=== PATIENT | male | born 1945 | race Caucasian/White ===

== ENCOUNTER → 2017-11-22 | Outpatient (CLI) | payer MEDICARE ==
[~2017-11-22] MED LIST: AMLO10TA2 PO; CEPH-460 PO; HYDR-4107 PO; HYDR25TA5 PO; LOSA100T PO; MUPI2OIN TOPICAL; OMEP20TA93 PO; VENL150C39 PO; VENL75TA PO
[2017-11-22 12:24] LABS: AUTOMATED NEUTROPHIL # 7.5 TH/MM3 (1.8-7.7); BASOPHIL % 0.3 % (0.0-2.0); EOSINOPHIL # 0.1 TH/MM3 (0-0.4); EOSINOPHIL % 0.6 % (0.0-4.0); HEMATOCRIT 40.8 % (39.0-51.0); HEMOGLOBIN 14.4 GM/DL (13.0-17.0); LYMPH % 17.4 % (9.0-44.0); LYMPHOCYTE # 1.7 TH/MM3 (1.0-4.8); MEAN CELL VOLUME 97.6 FL (80.0-100.0); MEAN CORPUSCULAR HEMOGLOBIN 34.5 PG (27.0-34.0); MEAN CORPUSCULAR HGB CONC 35.4 % (32.0-36.0); MEAN PLATELET VOLUME 7.9 FL (7.0-11.0); MONO % 7.1 % (0.0-8.0); MONOCYTE # 0.7 TH/MM3 (0-0.9); NEUT % 74.6 % (16.0-70.0); PLATELET COUNT 326 TH/MM3 (150-450); RED BLOOD COUNT 4.18 MIL/MM3 (4.50-5.90); RED CELL DISTRIBUTION WIDTH 13.3 % (11.6-17.2)
[2017-11-22 12:28] LABS: PROTHROMBIN TIME - PATIENT 9.8 SEC (9.8-11.6)
[2017-11-22 12:35] LABS: BILIRUBIN, URINE NEG (NEG); BLOOD, URINE NEG (NEG); GLUCOSE,URINE NEG (NEG); HYALINE CAST, URINE 1 /lpf (RARE); KETONE, URINE NEG (NEG); NITRITE,URINE NEG (NEG); PH, URINE 7.5 (5.0-8.5); URINE COLOR YELLOW (YELLW/STRAW); URINE LEUKOCYTE ESTERASE NEG (NEG)
[2017-11-22 12:56] LABS: ALBUMIN 4.2 GM/DL (3.4-5.0); AST (GOT) 16 U/L (15-37); BICARBONATE 30.8 MEQ/L (21.0-32.0); BLOOD UREA NITROGEN 6 MG/DL (7-18); CALCIUM 9.5 MG/DL (8.5-10.1); CHLORIDE 100 MEQ/L (98-107); CREATININE 0.69 MG/DL (0.60-1.30); GLOMERULAR FILTRATION RATE 113 ML/MIN (>89); GLUCOSE,FASTING 106 MG/DL (74-99); SODIUM (NA) 137 MEQ/L (136-145)
[2017-11-22 12:57] LABS: ALT (GPT) 22 U/L (12-78)
[2017-11-22 13:00] LABS: ALKALINE PHOSPHATASE 126 U/L (45-117); TOTAL BILIRUBIN ADULT 1.1 MG/DL (0.2-1.0); TOTAL PROTEIN 8.1 GM/DL (6.4-8.2)
--- NOTE | 2017-11-22 13:13 | RADRPT ---
EXAM DATE/TIME: 11/22/2017 13:04 [place] COMPARISON: No previous studies available for comparison. INDICATIONS : Pre op. Evaluate for pneumonia, pneumothorax, or communicable diseases. MEDICAL HISTORY : None. SURGICAL HISTORY : Fusion, cervical. ENCOUNTER: Initial ACUITY: 1 day PAIN SCORE: 0/10 LOCATION: Bilateral chest FINDINGS: PA and lateral views of the chest demonstrate the lungs to be symmetrically aerated without evidence of mass, infiltrate or effusion. There is some focal linear atelectasis versus scarring in the left lung base. The cardiomediastinal contours are unremarkable. There is prominent scoliosis of the thora cic spine with curvature to the right. The bony structures are grossly intact. CONCLUSION: 1. Linear focal atelectasis versus scarring in the left lung base. Otherwise, the lungs are grossly c lear. 2. Prominent scoliosis of the thoracic spine with curvature to the right. Catracho Mcgovern MD on November 22, 2017 at 13:11 Board Certified Radiologist. This report was verified electronically.
--- NOTE | 2017-11-23 13:45 | EKG ---
Date Performed: 11/22/2017 Time Performed: 12:44:30 PTAGE: 72 years EKG: Sinus rhythm LEFT ATRIAL ABNORMALITY POOR R-WAVE PROGRESSION WHICH MAY BE DUE TO LEAD PLACEMENT, CANNOT EXCLUDE A NTEROSEPTAL INFARCT LOSS OF R-WAVE IS NOTED IN LEAD V3 COMAPRED TO THE PRIOR TRACING, MOST LIKELY DUE TO LEAD PLACEMENT. BORDERLINE ECG PREVIOUS TRACING DOCTOR: Javy Stone Interpretating Date/Time 11/23/2017 13:44:03
== END ==
LOC: CPRE 11:44
PROVIDERS: ATTEND Neurological Surgery
DX: Z01.812 Encounter for preprocedural laboratory examination (principal); Z01.811 Encounter for preprocedural respiratory examination; Z01.810 Encounter for preprocedural cardiovascular examination; Z79.01 Long term (current) use of anticoagulants; Z01.818 Encounter for other preprocedural examination; M51.36 Other intervertebral disc degeneration, lumbar region; M43.10 Spondylolisthesis, site unspecified
CPT/HCPCS: 36415; 71046; 80053; 81001; 85025; 85610; 85730; 87640; 87641; 93005

== ENCOUNTER 2017-11-27 11:34 | Inpatient (IN) | payer MEDICARE ==
[~2017-11-27] VITALS: Ht 162.6 cm; Wt 87.3 kg
[~2017-11-27 11:34] MED LIST changes: -AMLO10TA2 PO; -CEPH-460 PO; -HYDR-4107 PO; -MUPI2OIN TOPICAL; -VENL150C39 PO; -VENL75TA PO
[2018-01-18] MEDS ORDERED: AMLO2.5T PO (14:05)
[2018-01-18] MEDS ORDERED: VENL75CA44 PO (14:05)
--- NOTE | 2018-01-23 18:05 | MH ---
cc: Ajay Jay MD, Eric MD Khanna,Ajay Leon,Madi Le, DATE OF ADMISSION: 01/24/2018 ADMITTING DIAGNOSIS: Lumbar degenerative disk disease. HISTORY OF PRESENT ILLNESS: This is a 72-year-old male who presented to us for an evaluation of neck and low back pain. He states that his low back pain is bothering him the most. He has had low back pain for the last year, but IT has been really bad over the last 6-7 months. He has been to pain management and had 3 injections, which have not helped for more than a few days. He states the pain specialist had difficulty getting the needle into his spine, secondary to his arthritis. He has had low back pain that radiates into the right hip and anterolateral thigh. If he stands for more than 10 minutes, the pain goes past the knee into the lateral calf. He states his lower extremities feel like they are getting weaker. He is having to ambulate with a cane more frequently. He denies any left leg symptoms. He also has numbness in the right anterolateral thigh. He states he cannot walk more than 150 feet before he has to sit down. He tends to ambulate with a kyphotic posture. He has been taking hydrocodone 5/325 and the frequency is increasing and now he takes it 3 times a day. He also has complaints of neck pain, but his back is more bothersome to him. He denies any radiculopathy in the upper extremities. He has numbness in the right posterior triceps area and also the right hand. He states he has been dropping stuff. PAST MEDICAL HISTORY: Significant for hypertension, gastroesophageal reflux disease. ALLERGIES: HE HAS NO KNOWN DRUG ALLERGIES. MEDICATIONS: 1. Amlodipine 10 mg p.o. daily. 2. Hydrochlorothiazide 25 mg p.o. daily. 3. Losartan 100 mg 1 tablet p.o. daily. 4. [place] 5/325 p.o. q.8 hours p.r.n. pain. 5. Omeprazole 20 mg p.o. daily. PAST SURGICAL HISTORY: Appendectomy in 1963, cataract surgery in 2009. He also has a history of a C2 fracture and underwent a posterior C1-C2 fusion. He has also had a C4-C5 anterior cervical fusion. SOCIAL HISTORY: He was a smoker. He quit at least 8 weeks before his surgery. He was smoking 1 1/2 packs per day of cigarettes. FAMILY HISTORY: Noncontributory to his current condition. REVIEW OF SYSTEMS: CONSTITUTIONAL: He denies any fever or chills. EARS, NOSE AND THROAT: No pharyngitis, exudate or bloody drainage from his nose. CARDIOVASCULAR: He denies any chest pain or palpitations. RESPIRATORY: No cough. Positive for some shortness of breath. GASTROINTESTINAL: No nausea, vomiting, abdominal pain. GENITOURINARY: No dysuria or hematuria. MUSCULOSKELETAL: Positive for neck and low back pain. SKIN: No rashes or pruritus. NEUROLOGIC: No difficulty with speech or memory. GASTROINTESTINAL: No nausea, vomiting, abdominal pain. PSYCHIATRIC: No anxiety or depression symptoms. ENDOCRINE: No polyuria or polydipsia. HEMATOLOGIC: No bruising or bleeding tendencies. PHYSICAL EXAMINATION: HEAD: Normocephalic, atraumatic. NECK: Supple. No carotid bruits heard on auscultation. LUNGS: Clear to auscultation bilaterally. HEART: Regular rate and rhythm. Normal S1, S2. ABDOMEN: Soft, nontender, positive bowel sounds. SKIN: No cyanosis or edema. He has a well-healed posterior cervical incision. MUSCULOSKELETAL: He has 4+/5 strength in the upper and lower extremities. He ambulates with a cane. He has a kyphotic posture and has a limp with the right leg with walking. NEUROLOGIC: He is awake, alert, and oriented. Cranial nerves 2-12 appear grossly intact. His speech is fluent. Comprehension is good. Sensation is diminished in the right thigh and right foot top and bottom, otherwise intact in the lower extremities. Reflexes are brisk in the upper and lower extremities with positive Kamara's bilaterally. 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 IMAGING STUDIES: We reviewed MRI of the cervical spine from 04/17/2017 which reveals moderate C5-C6 spinal stenosis from a disk osteophyte complex along with degenerative disk disease. He has a history of a C2 fracture with a posterior C1-C2 fusion and a remote history of anterior C4-C5 fusion as well which is well-decompressed spinal canal, but there are still areas of myelomalacia from previous compression and residual myelopathy. MRI of the lumbar spine from 04/17/2017 was reviewed, which shows multilevel degenerative disk disease with facet hypertrophy along with thoracolumbar degenerative scoliosis as well as L4-L5 and L5-S1 grade 1 spondylolisthesis. There is severe right L4-L5 foraminal stenosis from disk protrusion and facet hypertrophy along with degeneration and this appears to be the most symptomatic level for him. ASSESSMENT: A 72-year-old male with a chronic history of neck and low back pain. He also complains of weakness and numbness in his right hand and unsteadiness in his gait. His main complaint is low back pain radiating into the right anterolateral thigh and, at times, the calf. Standing 10 minutes and walking short distances are very difficult for him and he uses a cane. He has undergone physical therapy and interventional pain management without any lasting relief. He has been taking hydrocodone 3 pills a day and states that this helped to some extent, but he is still not very functional or active and does not want to take any higher doses. The patient and his relate that he has no quality of life and is basically sedentary. His MRI of the lumbar spine revealed multilevel degenerative disk disease with facet hypertrophy along with thoracolumbar degenerative scoliosis as well as L4-L5 and L5-S1 grade 1 spondylolisthesis. There is severe right L4-L5 foraminal stenosis from disk protrusion and facet hypertrophy along with degeneration and this appears to be the most symptomatic level for him. PLAN: The patient and his are requesting that we entertain surgical intervention for his lumbar spine. They understand that given the multilevel degeneration any surgical intervention will not provide complete pain relief. The procedure of a right L4/L5 transforaminal decompression with interbody fusion and pedicle screw fixation was discussed along with the risk and benefits involved and no guarantees were given. We have discussed the risks involved with surgery include but not limited to bleeding, infection, muscle weakness, voice hoarseness, difficulty swallowing, heart attack, stroke, blood clots, nonfusion, scar tissue formation, among others. We have also discussed the importance with the patient that he must quit smoking in his recuperation or he risks nonfusion and instrumentation failure. The patient states that he understands the risks involved and he understands the procedure. We have also discussed with him the risk of adjacent segment disk disease and progression requiring further surgery. The patient states that he understands the risk and he wishes to proceed. He was therefore scheduled accordingly. Ajay Jay MD RKK/SA , 05:25 PM , 06:04 PM
[2018-01-24] MEDS ORDERED: SODIUM CHLORID 0.9% 500 ML IV PRN (06:15)
[2018-01-24] MEDS ORDERED: VANCOMYCIN 1 GM/200 ML PREMIX ON-CALL IV SCH (06:15)
[2018-01-24] MEDS ORDERED: CHLORHEXIDINE GLUCONATE 2 % 1 PACK (2 CLOTHS) TOPICAL PRN (06:15)
[2018-01-24] MEDS ORDERED: METOPROLOL TARTRATE 25 MG TAB PO PRN (06:15)
[2018-01-24] MEDS ORDERED: POVIDONE IODINE 5% (ANTISEPSIS KIT) 4 APPLICATIONS EACH NARE PRN (06:15)
[2018-01-24] MEDS ORDERED: SODIUM CHLOR 0.9% 1000 ML INJ 1,000 ML IV SCH (06:15)
[2018-01-24] MEDS ORDERED: LACTATED RINGER'S 1000 ML IV PRN (06:15)
[2018-01-24] MEDS ORDERED: KETAMINE HCL 500 MG/10 ML VIAL ONE (08:05)
[2018-01-24] MEDS ORDERED: DEXAMETHASONE SOD PHOS 4 MG/ML VIAL IV ONE (12:00)
[2018-01-24] MEDS ORDERED: GLYCOPYRROLATE 1 MG/5 ML SYRINGE IV PUSH ONE (12:00)
[2018-01-24] MEDS ORDERED: LIDOCAINE HCL 1% PF 5 ML SYRINGE OTHER ONE (12:00)
[2018-01-24] MEDS ORDERED: PROPOFOL 200 MG/20 ML AMP IV ONE (12:00)
[2018-01-24] MEDS ORDERED: ePHEDrine/NS 25 MG/5 ML SYRINGE IV ONE (12:00)
[2018-01-24] MEDS ORDERED: PHENYLEPHRINE HCL 10 MG/ML VIAL IV ONE (12:00)
[2018-01-24] MEDS ORDERED: PHENYLEPH/NS 1000 MCG/10 ML SYR IV ONE (12:00)
[2018-01-24] MEDS ORDERED: VANCOMYCIN HCL 1000 MG VIAL ONE (12:00)
[2018-01-24] MEDS ORDERED: ONDANSETRON HCL 4 MG/2 ML VIAL IV PUSH ONE (12:00)
[2018-01-24] MEDS ORDERED: SODIUM CHLORIDE 0.9% 10 ML VIAL IV FLUSH ONE (12:00)
[2018-01-24] MEDS ORDERED: SUCCINYLCHOLINE CHLORIDE 100 MG/5 ML SYRINGE IV PUSH ONE (12:00)
[2018-01-24] MEDS ORDERED: ESMOLOL HCL 100 MG/10 ML VIAL IV ONE (12:00)
[2018-01-24] MEDS ORDERED: DO NOT ADM ANY ANTICOAGULANT DRUGS PRN (12:54)
[2018-01-24] MEDS ORDERED: cloNIDine HCL 0.1 MG TAB PO PRN (13:00)
[2018-01-24] MEDS ORDERED: LACTULOSE SYRUP 20 GM/30 ML CUP PO PRN (13:00)
[2018-01-24] MEDS ORDERED: BISACODYL 10 MG SUPP RECTAL PRN (13:00)
[2018-01-24] MEDS ORDERED: ACETAMINOPHEN 325 MG TAB PO PRN (13:00)
[2018-01-24] MEDS ORDERED: SENNOSIDES 8.6 MG TAB PO PRN (13:00)
[2018-01-24] MEDS ORDERED: SODIUM CHLORIDE 0.9% FLUSH 10 ML FLUSH IV FLUSH PRN (13:00)
[2018-01-24] MEDS ORDERED: MAGNESIUM HYDROXIDE SUSP 30 ML CUP PO PRN (13:00)
[2018-01-24] MEDS ORDERED: ACETAMINOPHEN/HYDROcodone 325 MG/10 MG TAB PO PRN (13:00)
[2018-01-24] MEDS ORDERED: CYCLOBENZAPRINE HCL 10 MG TAB PO PRN (13:00)
[2018-01-24] MEDS ORDERED: RESP: ALBUTEROL 2.5 MG/3 ML NEB (PRN) NEB (13:00)
[2018-01-24] MEDS ORDERED: MENTHOL LOZENGE BUCCAL PRN (13:00)
[2018-01-24] MEDS ORDERED: PROMETHAZINE INJ 25 MG/ML VIAL IM PRN (13:00)
[2018-01-24] MEDS ORDERED: CALCIUM GLUCONATE INJ 1 GM in SODIUM CHLORIDE 0.9% INJ 100 ML IV PRN (13:00)
[2018-01-24] MEDS ORDERED: ALUMINUM/MAGNESIUM/SIMETH 30 ML CUP PO PRN (13:00)
[2018-01-24] MEDS ORDERED: MAGNESIUM SULFATE INJ 2 GM in SODIUM CHLORIDE 0.9% INJ 100 ML IV PRN (13:00)
[2018-01-24] MEDS ORDERED: POTASSIUM CHLOR 20 MEQ PREMIX 100 ML IV PRN (13:00)
--- NOTE | 2018-01-24 13:00 | PD.OP ---
Madi Edward DO Operative Report Date of Surgery: January 24, 2018 Preoperative Diagnosis: Intractable low back pain with radiculopathy; severe L4-5 degenerative disc disease with facet hypertrophy and grade 1 spondylolisthesis with foraminal stenosis Postoperative Diagnosis: Same Procedure: Right L4-5 transforaminal decompression with interbody fusion; L4-5 pedicle screw fixation; L4-5 interbody cage placement; microsurgical technique Anesthesia: General endotracheal by Cher hooper Surgeon: Ajay Jay MD Attendant Sales(s): Crystal Mcgee Operation and Findings: Following initiation of general endotracheal anesthesia, the patient had a Garsia catheter placed along with sequential compression devices. The neck was maintained in a Clark collar during intubation and throughout the case to prevent any injury. A gram of vancomycin was administered intravenously and he was turned in a prone position on a Chase frame, on a Ary table, and all pressure points adequately padded. The lumbosacral region was then prepped with Chloraprep and sterilely draped with Ioban along the usual sterile draping. A right paraspinal skin incision was then made extending from the L4- L5 level after infiltrating the skin with 0.5% Marcaine with epinephrine solution extending down through the fascia. The muscle fibers were split using avascular fatty plane and detached from the underlying facets, transverse process and lateral portion of lamina on the right side and a self-retaining retractor used for exposure. Intraoperative fluoroscopy was also used for level of confirmation along with microscope magnification for further dissection. There was significant facet and ligamentum flavum hypertrophy noted at the L4- 5 levels. Right L4-5 facet was resected with a drill bit along with the lamina and there was severe foraminal and lateral recess stenosis from hypertrophied ligamentum flavum and facet which were decompressed There was significant disc height collapse along with disc protrusion and spondylolisthesis also leading to the foraminal stenosis. Epidural hemostasis was achieved with bipolar cautery and Gelfoam with thrombin. Subsequently entered into the disc space at the L4-5 level with a #15 blade and kaylah were used for discectomy. I then placed PEEK cage packed with local autograft bone and more local autograft bone was packed adjacent to the cage in interspace for added interbody fusion. With placement of the cage, I was able to distract the interspace and opened up the foramen further bilaterally. Subsequently in order to facilitate the fusion and provide stabilization, pedicle screw fixation was undertaken using Superior spine screws on entry point at the right L4-5 levels at the junction of the transverse process and facet. Subsequently using AP and lateral fluoroscopy tap and screw placement. The screws were then connected with a ambrosio and locked in place with caps. The construct appeared very secure at this point. The area was then copiously irrigated with Vancomycin solution and powder. The retractors were removed and the bipolar cautery used for hemostasis. The muscle fascia was then approximated using 2-0 Vicryl interrupted stitches and then 3-0 Vicryl subcuticular stitches also placed in interrupted fashion. The final skin closure was completed with Mastisol and Steri-Strips. A sterile dressing was then applied. The patient then turned in supine position, extubated and taken to recovery room. There were no intraoperative complications. All sponge and needle counts were correct at the end of procedure. Neurologic monitoring remained stable throughout the surgery and individual pedicle screw stimulation also did not identify any nerve root irritation. Estimated blood loss about 100 ml. Ajay Jay MD January 24, 2018 13:00
[2018-01-24] MEDS ORDERED: MIDAZOLAM HCL 2 MG/2 ML VIAL ONE (13:07)
[2018-01-24] MEDS ORDERED: *morphine SULFATE 8 MG/ML PERIprocedure ONLY ONE (13:26)
[2018-01-24 13:33] LABS: HEMATOCRIT 34.8 % (39.0-51.0); MEAN CELL VOLUME 94.9 FL (80.0-100.0); MEAN CORPUSCULAR HEMOGLOBIN 32.8 PG (27.0-34.0); MEAN CORPUSCULAR HGB CONC 34.5 % (32.0-36.0); MEAN PLATELET VOLUME 7.5 FL (7.0-11.0); PLATELET COUNT 239 TH/MM3 (150-450); RED BLOOD COUNT 3.67 MIL/MM3 (4.50-5.90); RED CELL DISTRIBUTION WIDTH 12.6 % (11.6-17.2); WHITE BLOOD COUNT 8.7 TH/MM3 (4.0-11.0)
[2018-01-24] MEDS ORDERED: *morphine SULFATE 10 MG/ML PERIprocedure ONLY ONE (13:40)
[2018-01-24] MEDS ORDERED: ONDANSETRON ODT 4 MG TAB PO PRN (13:45)
--- NOTE | 2018-01-24 13:53 | RADRPT ---
EXAM DATE: 01/24/2018 1:30 PM EDT AGE/SEX: 72 years / Male INDICATIONS: Fusion L4.L5 with screws and ambrosio placement. CLINICAL DATA: This is the patient's initial encounter. Patient reports that signs and symptoms have been present for 1 day and indicates a pain score of Nonresponsive. MEDICAL/SURGICAL HISTORY: None. Fusion, cervical. COMPARISON: No prior [place] exams available for comparison. FINDINGS: 2 coned-down views of the lower lumbar spine were obtained intraoperatively using a matrix camera. Th is demonstrates the patient is status post fusion at the L4-5 level with unilateral pedicle screws an d posterior fixation rods. There are markers in the interspace. The alignment is anatomic. The study is labeled assuming 5 nonrib-bearing lumbar-type vertebra. CONCLUSION: Status post fusion at the L4-5 level. Electronically signed by: Patrick Freire MD 01/24/2018 1:51 PM EDT
[2018-01-24] MEDS: SODIUM CHLOR 0.9% 1000 ML INJ 1,000 ML IV SCH ×2 (14:00→23:50)
[2018-01-24 14:29] LABS: BICARBONATE 23.7 MEQ/L (21.0-32.0); CALCIUM 8.7 MG/DL (8.5-10.1); CREATININE 0.65 MG/DL (0.60-1.30)
[2018-01-24] MEDS: MORPHINE SULFATE 4 MG/ML INJ IV PUSH PRN (16:28)
[2018-01-24] MEDS ORDERED: PILL SPLITTER OTHER PRN (17:45)
[2018-01-24] MEDS: ACETAMINOPHEN/HYDROcodone 325 MG/10 MG TAB PO PRN (17:54)
[2018-01-24] MEDS: DOCUSATE SODIUM 50 MG/SENNA 8.6 MG TAB PO SCH (21:34)
[2018-01-24] MEDS: VENLAFAXINE HCL XR 75 MG CAP PO SCH (21:34)
[2018-01-24] MEDS: SODIUM CHLORIDE 0.9% FLUSH 10 ML FLUSH IV FLUSH SCH (21:36)
[2018-01-24] MEDS: ZOLPIDEM TARTRATE 5 MG TAB PO PRN (21:36)
[2018-01-24 21:40] VITALS: BP 136/83; PULSE 92; RESP 18; TEMP 98; O2SAT 98
[2018-01-25] VITALS: BP 130/76; PULSE 80; RESP 19; TEMP 98; O2SAT 97
[2018-01-25 05:40] VITALS: BP 156/86; PULSE 92; RESP 19; TEMP 98; O2SAT 98
[2018-01-25] MEDS: ACETAMINOPHEN/HYDROcodone 325 MG/10 MG TAB PO PRN ×4 (05:57→17:36)
[2018-01-25 08:25] VITALS: BP 143/80; PULSE 92; RESP 18; TEMP 97.7; O2SAT 95
[2018-01-25] MEDS: LOSARTAN 50 MG TAB PO SCH (09:28)
[2018-01-25] MEDS: HYDROCHLOROTHIAZIDE 25 MG TAB PO SCH (09:28)
[2018-01-25] MEDS: VENLAFAXINE HCL XR 75 MG CAP PO SCH ×2 (09:28→22:05)
[2018-01-25] MEDS: SODIUM CHLOR 0.9% 1000 ML INJ 1,000 ML IV SCH (09:29)
[2018-01-25] MEDS: SODIUM CHLORIDE 0.9% FLUSH 10 ML FLUSH IV FLUSH SCH ×2 (09:29→22:06)
[2018-01-25] MEDS: DOCUSATE SODIUM 50 MG/SENNA 8.6 MG TAB PO SCH ×2 (09:29→22:05)
[2018-01-25] MEDS: amLODIPine BESYLATE 5 MG TAB PO SCH (09:29)
[2018-01-25] MEDS: PANTOPRAZOLE SOD 20 MG DELAYED RELEASE TAB PO SCH (09:29)
--- NOTE | 2018-01-25 09:35 | HHI.NSPN ---
(Eugene Yeung) History Chief Complaint: incisional back pain. (Eugene Yeung) Interval History 01/25/19: Pt is s/p right L4-5 transforaminal decompression with interbody fusion; L4-5 pedicle screw fixation; L4-5 interbody cage placement on 01/24/18. He complains of incisional back pain radiating into the right anterolateral thigh. He denies any chest pain or sob. (Eugene Yeung) Review of Systems General: Negative for: fever, chills, insomnia Respiratory: Negative for: shortness of breath, cough, sputum Cardiovascular: Negative for: chest pain Gastrointestinal: Negative for: nausea, vomitting, diarrhea, constipation ( Eugene Yeung) Exam Results Vital Signs Date Time Temp Pulse Resp B/P (MAP) Pulse Ox O2 Delivery O2 Flow Rate FiO2 01/25/18 08:25 97.7 92 18 143/80 (101) 95 01/24/18 15:50 Nasal Cannula 2 Intake and Output 01/25/18 01/25/18 01/26/18 08:00 16:00 00:00 Intake Total 1471 ml Output Total 400 ml Balance 1071 ml (Eugene Yeung) Physical Examination General: Pt resting in bed complaining of pain. Eyes: Pupils equal. Sclera anicteric. Resp: CTA bilaterally Heart: NSR no murmurs Abd: Soft positive bs Skin: Pt log rolled bandage wet with serous drainage but no active drainage. New bandage applied. Muscle: Moves LEs with 5/5 strength. Neuro: Pt awake and alert. Follows commands well. Speech clear and appropriate. Sensation grossly intact in LEs. (Eugene Yeung) Lab, Micro, Other Results Last Impressions Lumbar Spine X-Ray 01/24/18 0000 Signed Impressions: CONCLUSION: Status post fusion at the L4-5 level. Laboratory Tests Test 01/24/18 13:26 White Blood Count 8.7 TH/MM3 Red Blood Count 3.67 MIL/MM3 Hemoglobin 12.0 GM/DL Hematocrit 34.8 % Mean Corpuscular Volume 94.9 FL Mean Corpuscular Hemoglobin 32.8 PG Mean Corpuscular Hemoglobin Concent 34.5 % Red Cell Distribution Width 12.6 % Platelet Count 239 TH/MM3 Mean Platelet Volume 7.5 FL Blood Urea Nitrogen 9 MG/DL Creatinine 0.65 MG/DL Random Glucose 146 MG/DL Calcium Level 8.7 MG/DL Sodium Level 133 MEQ/L Potassium Level 4.0 MEQ/L Chloride Level 100 MEQ/L Carbon Dioxide Level 23.7 MEQ/L Anion Gap 9 MEQ/L Estimat Glomerular Filtration Rate 121 ML/MIN (Eugene Yeung) Medical Decision Making Impression and Plan A: 72 y/o M s/p right L4-5 transforaminal decompression with interbody fusion; L4-5 pedicle screw fixation; L4-5 interbody cage placement. P: Continue with pain control. PT oob with brace on D/C IVF (Eugene Yeung) Attending Statement The exam, history, and the medical decision-making described in the above note were completed with the assistance of the mid-level provider. I reviewed and agree with the findings presented. I attest that I had a [id number] encounter with the patient on the same day, and personally performed and documented my assessment and findings in the medical record. (Ajay Jay MD) Eugene Yeung January 25, 2018 09:35 Ajay Jay MD January 25, 2018 18:20
[2018-01-25 12:37] VITALS: BP 146/75; PULSE 92; RESP 18; TEMP 97.8; O2SAT 96
[2018-01-25 16:00] VITALS: BP 152/83; PULSE 115; RESP 18; TEMP 99.2; O2SAT 96
[2018-01-25 20:46] VITALS: BP 150/84; PULSE 90; RESP 18; TEMP 97.7; O2SAT 94
[2018-01-25] MEDS: ZOLPIDEM TARTRATE 5 MG TAB PO PRN (22:05)
[2018-01-25] MEDS: CYCLOBENZAPRINE HCL 10 MG TAB PO SCH (22:05)
[2018-01-26 00:12] VITALS: BP 159/75; PULSE 92; RESP 20; TEMP 98; O2SAT 95
[2018-01-26] MEDS: ACETAMINOPHEN/HYDROcodone 325 MG/10 MG TAB PO PRN (04:38)
[2018-01-26 04:51] VITALS: BP 157/92; PULSE 87; RESP 20; TEMP 99.5; O2SAT 97
[2018-01-26] MEDS: CYCLOBENZAPRINE HCL 10 MG TAB PO SCH ×3 (06:25→22:04)
[2018-01-26 08:19] VITALS: BP 142/93; PULSE 111; RESP 18; TEMP 99; O2SAT 96
[2018-01-26] MEDS: HYDROCHLOROTHIAZIDE 25 MG TAB PO SCH (08:49)
[2018-01-26] MEDS: VENLAFAXINE HCL XR 75 MG CAP PO SCH ×2 (08:49→22:04)
[2018-01-26] MEDS: DOCUSATE SODIUM 50 MG/SENNA 8.6 MG TAB PO SCH ×2 (08:50→22:04)
[2018-01-26] MEDS: amLODIPine BESYLATE 5 MG TAB PO SCH (08:50)
[2018-01-26] MEDS: LOSARTAN 50 MG TAB PO SCH (08:50)
[2018-01-26] MEDS: PANTOPRAZOLE SOD 20 MG DELAYED RELEASE TAB PO SCH (08:50)
[2018-01-26] MEDS: SODIUM CHLORIDE 0.9% FLUSH 10 ML FLUSH IV FLUSH SCH ×2 (09:04→22:03)
[2018-01-26] MEDS ORDERED: CYCL10TA PO (11:29)
[2018-01-26] MEDS ORDERED: HYDR-3366 PO (11:29)
[2018-01-26 12:11] VITALS: BP 154/86; PULSE 106; RESP 18; TEMP 98.9; O2SAT 97
--- NOTE | 2018-01-26 13:52 | HHI.NSPN ---
History Chief Complaint: incisional back pain. Interval History 72-year-old gentleman who is now postop day #2 status post L4-5 transforaminal decompression with interbody fusion. Main complaint is incisional pain. He ambulated with physical therapy and is voiding well. Review of Systems General: Negative for: fever, chills, insomnia Respiratory: Negative for: shortness of breath, cough, sputum Cardiovascular: Negative for: chest pain, palpitations, orthopnea Gastrointestinal: Negative for: nausea, vomitting, diarrhea, constipation Genitourinary: Negative for: urinary burning, urinary frequency, urinary urgency Exam Results Vital Signs Date Time Temp Pulse Resp B/P (MAP) Pulse Ox O2 Delivery O2 Flow Rate FiO2 01/26/18 12:11 98.9 106 18 154/86 (108) 97 01/24/18 15:50 Nasal Cannula 2 Intake and Output 01/26/18 01/26/18 01/27/18 08:00 16:00 00:00 Output Total 1325 ml 150 ml Balance -1325 ml -150 ml Physical Examination General: Pt resting in bed. Eyes: Pupils equal. Sclera anicteric. Resp: CTA bilaterally Heart: NSR no murmurs Abd: Soft positive bs Skin: Pt log rolled bandage wet with serous drainage but no active drainage. New bandage applied. Muscle: Moves LEs with 5/5 strength. Neuro: Pt awake and alert. Follows commands well. Speech clear and appropriate. Sensation grossly intact in LEs. Medical Decision Making Impression and Plan 72-year-old gentleman is postop day #2 status post L4-5 TLIF. Continue with pain control and increase activity status as tolerated physical therapy. Discussed discharge planning either home with home PT or [facility] home placement in the next day or so. Ajay Jay MD Jan 26, 2018 13:52
[2018-01-26 16:00] VITALS: BP 153/84; PULSE 119; RESP 18; TEMP 99.9; O2SAT 98
[2018-01-26 21:04] VITALS: BP 149/87; PULSE 108; RESP 18; TEMP 98.7; O2SAT 96
[2018-01-26] MEDS: ZOLPIDEM TARTRATE 5 MG TAB PO PRN (22:03)
[2018-01-27 00:29] VITALS: BP 138/68; PULSE 100; RESP 20; TEMP 98.4; O2SAT 97
[2018-01-27] MEDS: MORPHINE SULFATE 4 MG/ML INJ IV PUSH PRN (04:23)
[2018-01-27 04:54] VITALS: BP 119/57; PULSE 61; RESP 20; TEMP 98.4; O2SAT 97
[2018-01-27] MEDS: CYCLOBENZAPRINE HCL 10 MG TAB PO SCH ×3 (06:28→21:30)
[2018-01-27 08:00] VITALS: BP 158/93; PULSE 60; RESP 17; TEMP 98.5; O2SAT 97
[2018-01-27] MEDS: PANTOPRAZOLE SOD 20 MG DELAYED RELEASE TAB PO SCH (09:01)
[2018-01-27] MEDS: LOSARTAN 50 MG TAB PO SCH (09:01)
[2018-01-27] MEDS: amLODIPine BESYLATE 5 MG TAB PO SCH (09:01)
[2018-01-27] MEDS: VENLAFAXINE HCL XR 75 MG CAP PO SCH ×2 (09:01→21:30)
[2018-01-27] MEDS: DOCUSATE SODIUM 50 MG/SENNA 8.6 MG TAB PO SCH ×2 (09:01→21:30)
[2018-01-27] MEDS: HYDROCHLOROTHIAZIDE 25 MG TAB PO SCH (09:02)
[2018-01-27] MEDS: SODIUM CHLORIDE 0.9% FLUSH 10 ML FLUSH IV FLUSH SCH ×2 (09:02→21:00)
[2018-01-27 12:00] VITALS: BP 125/68; PULSE 67; RESP 17; TEMP 98.1; O2SAT 97
[2018-01-27 16:00] VITALS: BP 133/65; PULSE 67; RESP 18; TEMP 98.9; O2SAT 97
[2018-01-27 20:10] VITALS: BP 135/86; PULSE 97; RESP 18; TEMP 99.2; O2SAT 96
[2018-01-27] MEDS: ZOLPIDEM TARTRATE 5 MG TAB PO PRN (21:30)
[2018-01-27] MEDS: ACETAMINOPHEN/HYDROcodone 325 MG/10 MG TAB PO PRN (21:31)
[2018-01-28 00:40] VITALS: BP 113/83; PULSE 99; RESP 18; TEMP 97; O2SAT 99
[2018-01-28 05:01] VITALS: BP 129/74; PULSE 60; RESP 18; TEMP 98.3; O2SAT 95
[2018-01-28] MEDS: CYCLOBENZAPRINE HCL 10 MG TAB PO SCH ×2 (05:55→13:07)
[2018-01-28] MEDS: DOCUSATE SODIUM 50 MG/SENNA 8.6 MG TAB PO SCH (07:36)
[2018-01-28] MEDS: LOSARTAN 50 MG TAB PO SCH (07:36)
[2018-01-28] MEDS: HYDROCHLOROTHIAZIDE 25 MG TAB PO SCH (07:37)
[2018-01-28] MEDS: amLODIPine BESYLATE 5 MG TAB PO SCH (07:37)
[2018-01-28] MEDS: SODIUM CHLORIDE 0.9% FLUSH 10 ML FLUSH IV FLUSH SCH (07:37)
[2018-01-28] MEDS: PANTOPRAZOLE SOD 20 MG DELAYED RELEASE TAB PO SCH (07:37)
[2018-01-28] MEDS: VENLAFAXINE HCL XR 75 MG CAP PO SCH (07:37)
[2018-01-28 08:00] VITALS: BP 156/87; PULSE 106; RESP 16; TEMP 97.4; O2SAT 97
[2018-01-28 12:00] VITALS: BP 109/65; PULSE 67; RESP 17; TEMP 98.1; O2SAT 97
[2018-01-28] MEDS ORDERED: CYCL10TA PO (16:01)
[2018-01-28] MEDS ORDERED: HYDR-3583 PO (16:01)
--- NOTE | 2018-01-28 16:03 | HHI.PR ---
Subjective Remarks 72yM post-op s/p L4-5 transforaminal decompression with interbody fusion. clinically improving. asked by Dr. Jay to evaluate the patient prior to discharge to inpatient rehab. patient does complain of right lateral thigh pain which he describes as mild. he states this is part of the pain he had pre-op, and is stable and even improved from pre-op. denies any other pain, numbness, or weakness. no loss of bowel or bladder control. tolerating diet. ambulated today. feels stronger today than yesterday. wants to leave hospital to rehab. no other complaints. Objective Vital Signs Date Time Temp Pulse Resp B/P (MAP) Pulse Ox O2 Delivery O2 Flow Rate FiO2 01/28/18 12:00 98.1 67 17 109/65 (80) 97 01/28/18 08:00 97.4 106 16 156/87 (110) 97 01/28/18 05:01 98.3 60 18 129/74 (92) 95 01/28/18 00:40 97.0 99 18 113/83 (93) 99 01/27/18 20:10 99.2 97 18 135/86 (102) 96 01/27/18 16:00 98.9 67 18 133/65 (87) 97 I/O 01/27/18 01/27/18 01/27/18 01/28/18 01/28/18 01/28/18 07:00 15:00 23:00 07:00 15:00 23:00 Output Total 250 ml 100 ml Balance -250 ml -100 ml Output Urine Total 250 ml 100 ml Result Diagram: 01/24/18 1326 01/24/18 1326 Objective Remarks gen: elderly male, lying in bed, no acute distress. heent: nc. at. perrl. mmm. neck: no jvd. trachea midline. chest: unlabored. room air. cv: normal rate, regular rhythm. abd: soft, nontender, nondistended. no guarding. extr: no peripheral edema. back: dressing over lumbar area, c/d/i. neuro: ALVARO 5/5 all extremities. sensation intact grossly. no focal neurologic deficits. Assessment and Plan Assessment and Plan Assessment: 72yM post-op s/p L4-5 transforaminal decompression with interbody fusion. Clinically improving and stable for discharge to inpatient rehab. discharge to inpatient rehab will send patient with 14 days of Flexeril 10mg po q8h prn will send patient with 3 days of norco 10/325 q4h prn f/u with Dr. Jay in 4 weeks discussed with patient and if his symptoms of right thigh pain get worse or if he experiences any numbness or weakness to call Dr. Jay's office or return to ED for any concerning symptoms. Thien Frias MD Jan 28, 2018 16:02
== END 2018-01-28 18:36 | DRG 460 ==
LOC: HSDI 01-24 05:49 → N05A 01-24 16:06
PROVIDERS: ADMIT Neurological Surgery; ATTEND Neurological Surgery
PROC: 0SB20ZZ Excision of Lumbar Vertebral Disc, Open Approach (ICD-10-PCS; 2018-01-24)
PROC: 0SG00AJ Fusion of Lumbar Vertebral Joint with Interbody Fusion Device, Posterior Approach, Anterior Column, Open Approach (ICD-10-PCS; principal; 2018-01-24 08:34)
DX: M51.16 Intervertebral disc disorders with radiculopathy, lumbar region (principal); M41.85 Other forms of scoliosis, thoracolumbar region; I10 Essential (primary) hypertension; M48.061 Spinal stenosis, lumbar region without neurogenic claudication; M43.16 Spondylolisthesis, lumbar region; M51.36 Other intervertebral disc degeneration, lumbar region; K21.9 Gastro-esophageal reflux disease without esophagitis; M51.37 Other intervertebral disc degeneration, lumbosacral region; M54.2 Cervicalgia; M43.17 Spondylolisthesis, lumbosacral region; M47.9 Spondylosis, unspecified; M51.26 Other intervertebral disc displacement, lumbar region; Z98.1 Arthrodesis status; Z87.891 Personal history of nicotine dependence
CPT/HCPCS: 72100; 76000; 80048; 85027; 94150; C1713; J0330; J0690; J1100; J2250; J2270; J2370; J2405; J3010; J3370; J7030; J7120; L0627

== ENCOUNTER → 2018-01-23 | Outpatient (CLI) | payer MEDICARE ==
[~2018-01-23] MED LIST changes: +ACETAMINOPHEN 1000 MG/100 ML 100 ML IV ONE; +AMLO2.5T PO; +BUPIVACAINE/EPINEPHRINE 0.5% PF 10 ML VIAL ONE; +CYCL10TA PO; +GELFOAM SIZE 100 ONE; +HYDR-3366 PO; +HYDR-3583 PO; +PROPOFOL 500 MG/50 ML INJ 200 ML ONE; +THROMBIN (TOPICAL) 5,000 UNIT VIAL ONE; +VENL75CA44 PO
[2018-01-23 12:35] LABS: BILIRUBIN, URINE NEG (NEG); BLOOD, URINE NEG (NEG); GLUCOSE,URINE NEG (NEG); KETONE, URINE NEG (NEG); NITRITE,URINE NEG (NEG); URINE COLOR YELLOW (YELLW/STRAW); URINE LEUKOCYTE ESTERASE NEG (NEG)
[2018-01-23 12:45] LABS: AUTOMATED NEUTROPHIL # 5.5 TH/MM3 (1.8-7.7); BASOPHIL % 0.3 % (0.0-2.0); EOSINOPHIL % 0.5 % (0.0-4.0); HEMATOCRIT 39.9 % (39.0-51.0); HEMOGLOBIN 13.8 GM/DL (13.0-17.0); LYMPH % 20.2 % (9.0-44.0); LYMPHOCYTE # 1.6 TH/MM3 (1.0-4.8); MEAN CELL VOLUME 95.2 FL (80.0-100.0); MEAN CORPUSCULAR HGB CONC 34.7 % (32.0-36.0); MEAN PLATELET VOLUME 7.8 FL (7.0-11.0); MONO % 8.2 % (0.0-8.0); MONOCYTE # 0.6 TH/MM3 (0-0.9); NEUT % 70.8 % (16.0-70.0); PLATELET COUNT 289 TH/MM3 (150-450); RED BLOOD COUNT 4.19 MIL/MM3 (4.50-5.90); RED CELL DISTRIBUTION WIDTH 12.5 % (11.6-17.2); WHITE BLOOD COUNT 7.8 TH/MM3 (4.0-11.0)
[2018-01-23 13:01] LABS: ALBUMIN 4.5 GM/DL (3.4-5.0); ALT (GPT) 26 U/L (12-78); AST (GOT) 21 U/L (15-37); BICARBONATE 28.9 MEQ/L (21.0-32.0); BLOOD UREA NITROGEN 10 MG/DL (7-18); CHLORIDE 96 MEQ/L (98-107); CREATININE 0.83 MG/DL (0.60-1.30); GLOMERULAR FILTRATION RATE 91 ML/MIN (>89); GLUCOSE,FASTING 116 MG/DL (74-99); SODIUM (NA) 134 MEQ/L (136-145)
[2018-01-23 13:03] LABS: ALKALINE PHOSPHATASE 105 U/L (45-117); TOTAL BILIRUBIN ADULT 1.2 MG/DL (0.2-1.0); TOTAL PROTEIN 8.2 GM/DL (6.4-8.2)
== END ==
LOC: CPRE 11:36
PROVIDERS: ATTEND Neurological Surgery
DX: Z01.812 Encounter for preprocedural laboratory examination (principal); M51.36 Other intervertebral disc degeneration, lumbar region; M51.16 Intervertebral disc disorders with radiculopathy, lumbar region
CPT/HCPCS: 36415; 80053; 81001; 85025; 85610; 85730; 86850; 86900; 86901; 87640; 87641; J0131